=== PATIENT | female | born 1950 | race Caucasian/White ===

== ENCOUNTER 2023-02-05 08:04 | Outpatient (CLI) | payer MEDICARE, OTHER | END 2023-02-05 08:05 | disposition home or self-care (01) | LOC: CSHMAMMO 08:04 | PROVIDERS: ATTEND Obstetrics & Gynecology | DX: Z12.31 Encounter for screening mammogram for malignant neoplasm of breast (principal); Z91.89 Other specified personal risk factors, not elsewhere classified | CPT/HCPCS: 77063; 77067 ==

== ENCOUNTER 2023-03-18 10:54 | Outpatient (CLI) | payer MEDICARE, OTHER | END 2023-03-18 10:55 | disposition home or self-care (01) | LOC: CSHMAMMO 10:54 | PROVIDERS: ATTEND Obstetrics & Gynecology | DX: Z13.820 Encounter for screening for osteoporosis (principal); M81.0 Age-related osteoporosis without current pathological fracture; M85.88 Other specified disorders of bone density and structure, other site | CPT/HCPCS: 77080 ==

== ENCOUNTER 2023-07-31 07:14 | Outpatient (CLI) | payer MEDICARE, OTHER | END 2023-07-31 07:15 | disposition home or self-care (01) | LOC: CSHCP 07:14 | PROVIDERS: ATTEND Internal Medicine | DX: J44.9 Chronic obstructive pulmonary disease, unspecified (principal); R94.2 Abnormal results of pulmonary function studies | CPT/HCPCS: 94060; 94618; 94664; 94726; 94729 ==

== ENCOUNTER 2023-10-04 08:06 | Outpatient (CLI) | payer MEDICARE, OTHER | END 2023-10-04 08:07 | disposition home or self-care (01) | LOC: CSHCT 08:06 | PROVIDERS: ATTEND Neurological Surgery | DX: M47.816 Spondylosis without myelopathy or radiculopathy, lumbar region (principal); N94.89 Other specified conditions associated with female genital organs and menstrual cycle | CPT/HCPCS: 72131 ==